=== PATIENT | female | born 1965 | race Caucasian/White ===

== ENCOUNTER 2017-09-11 05:42 | Day surgery (SDC) | payer OTHER ==
[2017-09-11] MEDS ORDERED: FENTAnyl 50 MCG/ML VIAL (07:58)
[2017-09-11] MEDS ORDERED: MIDAZOLAM 1 MG/ML 2 ML INJ ×2 (07:58)
== END 2017-09-11 10:37 | disposition home or self-care (01) ==
LOC: GIL 05:42
DX: Z12.11 Encounter for screening for malignant neoplasm of colon (principal); K64.8 Other hemorrhoids
CPT/HCPCS: 45378